=== PATIENT | male | born 1975 | race Two or more races ===

== ENCOUNTER 2023-07-14 14:27 | Emergency (ER) | payer OTHER, SELFPAY ==
--- NOTE | ~2023-07-14 | XR_ITS ---
XR chest 1V portable DATE: 07/14/2023 15:39 INDICATION: Shortness of breath. Chest on by wall spine. TECHNIQUE: Portable AP chest on 07/14/2023 at 1537 hours COMPARISON: None FINDINGS: Normal heart size. No hilar or mediastinal enlargement. No pulmonary infiltrate or consolid ation, pleural effusion or pulmonary vascular congestion or pneumothorax. Included skeletal structure s are unremarkable. IMPRESSION: Negative Reviewed, dictated and finalized at location B. IMPRESSION: Negative
[2023-07-14 14:39] VITALS: BP 116/79; PULSE 107; RESP 20; TEMP 36.3; O2SAT 94
--- NOTE | 2023-07-14 15:00 | ECG_ITS ---
Measurements Intervals [place] Rate: 92 P: 53 CA: 153 QRS: -20 QRSD: 110 T: 38 QT: 346 QTc: 429 Interpretive Statements SINUS RHYTHM NO PREVIOUS ECG AVAILABLE FOR COMPARISON Electronically Signed On 07-15-2023 12:10:37 CDT by Zainab France M.D.
[2023-07-14] MEDS: EPINEPHrine HCL INJ 1 MG/ML AMPUL 0.3 MG IM (15:12)
[2023-07-14] MEDS: methylPREDNISolone SOD SUCC 125 MG VIAL IV PUSH (15:12)
[2023-07-14] MEDS: diphenhydrAMINE HCl INJ 50 MG/ML VIAL IV PUSH (15:12)
[2023-07-14 15:20] VITALS: PULSE 90; RESP 18
[2023-07-14] MEDS: ALBUTEROL SULFATE NEB 2.5 MG/3 ML INH INHALATION (15:23)
[2023-07-14 15:28] VITALS: PULSE 92; RESP 18
--- NOTE | 2023-07-14 16:41 | ED.ALLEREA ---
HPI - Allergic Reaction General Chief complaint: Allergic Reaction Stated complaint: stung by wasp Time Seen by Provider: 07/14/23 14:52 Source: patient and RN notes reviewed Mode of arrival: ambulatory Limitations: no limitations History of Present Illness HPI narrative: This is a 48 year old male who presents for evaluation of allergic reaction. Patient states he was stung by multiple wasp prior to arrival. He denies hives, itching, tongue tingling and chest tightness. He reports history of allergic reaction with wasp sting in the past. His gave him 2 benadryl and steroid cream. Patient denies any medical problems or medications. Related Data Allergies Allergy/AdvReac Type Severity Reaction Status Date / Time No Known Allergies Allergy Unverified 02/18/18 17:26 Review of Systems Constitutional: Constitutional: Denies weakness Cardiovascular: Cardiovascular: Denies syncope, Denies rapid heart rate, Denies irregular heart rhythm, Denies leg edema and Denies dyspnea Respiratory: Respiratory: Reports chest congestion, Denies hemoptysis, Denies excessive phlegm production and Denies dyspnea Gastrointestinal: Gastrointestinal: Denies abdominal pain, Denies hematochezia, Denies diarrhea and Denies vomiting Genitourinary: Genitourinary: Denies hematuria, Denies dysuria, Denies penile discharge and Denies testicular pain Musculoskeletal: Musculoskeletal: Denies joint swelling, Denies loss of height and Denies muscle weakness Integumentary/Breasts: Skin/Breast: Reports pruritus and Reports rash Neurologic: Denies syncope, Denies focal weakness and Denies weakness PMFSH Past Medical History Medical History (Updated 07/15/23 @ 00:00 by Frnak Dasanya) Patient denies medical problems Surgical History Surgical History (Updated 07/14/23 @ 16:45 by Raquel Matta MD) No pertinent past surgical history Exam Const: General: no acute distress and alert Nutritional Appearance: well nourished Orientation/consciousness: patient oriented x3 HENMT: Head: normal to inspection Mouth: Yes Normal oral and palatal mucosa present, Yes lip normal and Yes moist mucous membranes Throat: posterior oropharynx normal and uvula midline Eyes: Conjunctivae: conjunctivae normal Pupils: Equal, round and reactive pupils present EOM: EOMs intact bilaterally Neck: Neck: normal visual inspection Chest: Chest palpation & inspection: normal inspection of the chest Resp: Effort & Inspection: normal respiratory effort Auscultation: wheezes expiratory wheezes Skin: Other: hives to arms, legs , trunk Neuro: General: patient oriented x3, moves all extremities and CN's II-XI intact bilaterally Extrem: General: normal to inspection Psych: Mental Status: mental status grossly normal Affect: normal affect Attitude: cooperative Course Reevaluation(s) Reevaluation #1: patient reports symptoms have resolved after benadryl 50 mg IV, solumedrol 125 mg IV, epi 0.3 mg IM, albuterol neb. I discussed we should watch for another hour for rebound symptoms. He is begging for discharge and states he leaves 2 minutes away. Date: 07/14/23 Time: 16:45 Vital Signs Vital signs: Vital Signs Temperature 97.3 F L 07/14/23 14:39 Pulse Rate 107 H 07/14/23 14:39 Respiratory Rate 20 07/14/23 14:39 Blood Pressure 116/79 07/14/23 14:39 Pulse Oximetry 94 07/14/23 14:39 Temperature 97.3 F L 07/14/23 14:39 Pulse Rate 80 07/14/23 17:10 Respiratory Rate 18 07/14/23 17:10 Blood Pressure 129/96 H 07/14/23 17:10 Pulse Oximetry 100 07/14/23 17:10 MDM - Allergic Reaction Differential Diagnosis Differential diagnosis: Likely anaphylaxis, allergic reaction, angioedema and urticaria Discharge Plan Discharge Clinical Impression: Allergic reaction Patient Disposition: Home, Self-Care Condition: Improved Instructions: Insect Bite or Sting (ED), Anaphylaxis (ED), General Allergic Reaction (ED) A
[2023-07-14 17:10] VITALS: BP 129/96; PULSE 80; RESP 18; O2SAT 100
== END 2023-07-14 17:11 | disposition home or self-care (01) ==
PROVIDERS: Emergency Provider General Practice; PCP Internal Medicine
DX: T78.40XA Allergy, unspecified, initial encounter (principal); X58.XXXA Exposure to other specified factors, initial encounter
CPT/HCPCS: 71045; 93005; 94640; 96372; 96374; 96375; 99284; J0171; J1200; J2930

== ENCOUNTER 2024-08-03 12:02 | Outpatient (CLI) | payer OTHER, SELFPAY ==
--- NOTE | ~2024-08-03 | XR_ITS ---
3 VIEWS LUMBAR SPINE Ordering provider: Ebony Jefferson, History: . NON TRAUMA LBP . Comparison: None. FINDINGS: VERTEBRAL BODIES: No visible fracture or subluxation. DISK SPACES: Normal. SOFT TISSUES: Normal. IMPRESSION: No acute osseous abnormality lumbar spine. Reviewed, dictated and finalized at location A.
== END 2024-08-03 12:03 | disposition home or self-care (01) ==
PROVIDERS: PCP Internal Medicine; Visit Provider Internal Medicine
DX: M54.16 Radiculopathy, lumbar region (principal)
CPT/HCPCS: 72110

== ENCOUNTER 2024-08-12 13:37 | Outpatient (CLI) | payer OTHER, SELFPAY | END 2024-08-12 13:38 | disposition home or self-care (01) | LOC: ANHAUDIO 13:40 | PROVIDERS: PCP Internal Medicine; Visit Provider Internal Medicine | DX: H90.3 Sensorineural hearing loss, bilateral (principal) | CPT/HCPCS: 92557; 92567 ==

== ENCOUNTER 2024-08-14 07:04 | Outpatient (CLI) | payer OTHER, SELFPAY ==
--- NOTE | ~2024-08-14 | CT_ITS ---
EXAMINATION: CT abdomen pelvis wo/w con DATE: 08/14/2024 07:45 INDICATION: Microscopic hematuria TECHNIQUE: Computed tomography (CT) of the abdomen and pelvis was performed without and subsequently with 100 CC Omnipaque 350 intravenous contrast material intravenous contrast. Automated exposure cont rol and iterative reconstruction technique were employed. Exam dose: 2077.39 mGy-cm total exam DLP. COMPARISON: None. FINDINGS: The lung bases are clear. Normal heart size. No pericardial or pleural effusion. Hepatic steatosis. No hepatic, splenic, pancreatic, adrenal or renal space occupying mass lesion is noted. No bile duct or pancreatic duct dilatation. No urinary tract tract calculus or hydroureteronephrosis . Normal appendix. No bowel obstruction or intraperitoneal free air. Normal caliber of the abdominal aorta. No intraperitoneal or retroperitoneal or pelvic mass lesion or adenopathy or ascites. Urinary bladder is relatively evacuated. The prostate gland is unremarkable. Included skeletal structures are unremarkable IMPRESSION: Hepatic steatosis Normal appendix No urinary tract mass lesion, calculus or hydroureteronephrosis is detected Reviewed, dictated and finalized at Location A. Reviewed, dictated and finalized at location A.
[2024-08-14 07:28] LABS: Estimated Glomerular Filt Rate 43
== END 2024-08-14 07:05 | disposition home or self-care (01) ==
PROVIDERS: PCP Internal Medicine; Visit Provider Internal Medicine
DX: R31.21 Asymptomatic microscopic hematuria (principal); K76.0 Fatty (change of) liver, not elsewhere classified
CPT/HCPCS: 74178; Q9967

== ENCOUNTER 2024-09-05 10:31 | Outpatient (CLI) | payer OTHER, SELFPAY ==
--- NOTE | ~2024-09-05 | MR_ITS ---
EXAMINATION: MR lumbar spine wo con DATE: 09/05/2024 11:11 INDICATION: Lumbar radiculopathy TECHNIQUE: Magnetic resonance imaging (MRI) of the lumbar spine was performed without intravenous con trast. Sequences included sagittal T2-weighted FSE, sagittal T2-weighted FS FSE, sagittal T1-weighted FSE, and axial T2-weighted FSE. COMPARISON: None FINDINGS: 3 mm retrolisthesis L5 on S1. Vertebral body heights are normal. Mild fibrovascular degenerative endp late changes along the anterior superior endplates of L2-L5 and at the posterior inferior endplate of L4. Marrow signal is otherwise normal. Mild disc desiccation and disc height loss with annular fissu res at both L4-L5 and L5-S1. The conus medullaris terminates at L1. There is normal signal in the cau thom spinal cord. Paravertebral soft tissues are unremarkable. The following disc levels are specifica lly discussed: T12-L1 through L3-L4: The disc does not extend beyond the endplate margin. There is mild bilateral fa cet joint osteoarthritis. There is no neural foraminal stenosis. There is no central canal stenosis. L4-L5: Disc is bulging. There is moderate bilateral facet joint osteoarthritis. There is mild to mode rate bilateral neural foraminal stenosis. There is mild central canal stenosis along with mild narrow ing of the left and right lateral recesses. L5-S1: Annular fissure and small central disc protrusion. There is moderate left and severe right fac et joint osteoarthritis. There is mild right and minimal left neural foraminal stenosis. There is no central canal stenosis. IMPRESSION: 1. Mild lower lumbar spondylosis. Reviewed, dictated and finalized at location A. EYOR ATTENDANT
== END 2024-09-05 10:32 | disposition home or self-care (01) ==
PROVIDERS: PCP Internal Medicine; Visit Provider Internal Medicine
DX: M43.06 Spondylolysis, lumbar region (principal)
CPT/HCPCS: 72148

== ENCOUNTER 2025-06-12 13:58 | Emergency (ER) | payer OTHER, SELFPAY ==
[2025-06-12] VITALS (23 sets, daily range): BP systolic 111–153; BP diastolic 80–115; PULSE 78–81; RESP 18–20; TEMP 36.4; O2SAT 94–100
--- NOTE | ~2025-06-12 | CT_ITS ---
EXAMINATION: CT abdomen pelvis wo con DATE: 06/12/2025 19:12 INDICATION: Inguinal hernia TECHNIQUE: Computed tomography (CT) of the abdomen and pelvis was performed without intravenous contrast. Automated exposure control and iterative reconstruction technique were employed. The dose-length product was 453.80 mGy-cm. COMPARISON: None FINDINGS: Lung bases are clear. Heart size is normal. No pericardial or pleural effusion. Liver, gallbladder, spleen, pancreas, bilateral adrenal glands and kidneys are normal. Normal appendix. No bowel obstruction. Bladder is normal. Small fat- containing right inguinal hernia. There is no left inguinal hernia. There is soft tissue edema in the suprapubic fat pad. There is a 4.5 x 4.0 x 1.8 cm high attenuation hematoma along the left side of the base of the penis suspicious for a hematoma and raising concern for penile fracture. No free intraperitoneal gas or fluid. No pathologically enlarged abdominal or pelvic lymphadenopathy. Mild degenerative skeletal changes in the lumbar spine and pelvis. IMPRESSION: 1. 4.5 x 4.0 x 1.8 cm low-attenuation likely hematoma along the left side of the base of the penis raising concern for penile fracture. No left-sided inguinal hernia. 2. Small fat-containing right inguinal hernia. Reviewed, dictated and finalized at location A. IMPRESSION: 1. 4.5 x 4.0 x 1.8 cm low-attenuation likely hematoma along the left side of th e base of the penis raising concern for penile fracture. No left-sided inguinal hernia. 2. Small fat-containing right inguinal hernia.
--- NOTE | ~2025-06-12 | US_ITS ---
EXAMINATION: US scrotum doppler DATE: 06/12/2025 18:04 INDICATION: Scrotal swelling TECHNIQUE: Testicular sonogram utilizing grayscale and Doppler COMPARISON: CT dated 08/14/2024 FINDINGS: The right testis measures 4.3 x 2.4 x 2.0 cm. The left testis measures 4.1 x 2.9 x 2.1 cm. Symmetric normal grayscale appearance to both testes. There is normal vascular flow to both testes. Bilateral 2-3 mm epididymal cysts. The bilateral epididymides are otherwise normal with normal vascular flow. There is no varicocele. Small bilateral hydroceles, left greater than right. There is a left inguinal hernia with peristalsing bowel extending caudally along the inguinal canal to the base of the scrotum near the level of the testis. This appears new since CT dated 08/14/2024. There is a small fat-containing right inguinal hernia which was present at the time of the prior CT. IMPRESSION: 1. At least moderate-sized left inguinal hernia containing peristalsing bowel which extends to the base of the scrotum which is new since 08/14/2024. 2. Chronic small fat-containing right inguinal hernia. 3. 2-3 mm bilateral epididymal cysts. Otherwise normal testes and epididymides. Reviewed, dictated and finalized at location A.
[2025-06-12 17:14] LABS: Hematocrit 48.7 % (42.0-52.0); Hemoglobin 16.2 g/dL (14.0-18.0); Immature Granulocyte Percent A 0.1 % (0-0.5); Lymphocytes Absolute Auto 2.27 K/mm3 (0.9-3.2); Mean Corpuscular HGB Conc 33.3 g/dl (32-36); Mean Corpuscular Hemoglobin 28.9 pg (26-34); Mean Corpuscular Volume 87.0 fl (80-100); Nucleated Red Blood Cells Absolute Auto 0.000 K/mm3 (0.0-0.012); Nucleated Red Blood Cells Perc 0.0 % (0.0-0.2); Platelet Count Result 226 k/mm3 (150-375); Red Blood Count 5.60 M/mm3 (4.6-6.20); White Blood Count 8.7 K/mm3 (4.5-10.0)
[2025-06-12 17:24] LABS: Alanine Aminotransferase 24 U/L (6-50); Albumin Level 4.6 g/dL (3.5-5.1); Alkaline Phosphatase 61 U/L (38-126); Anion Gap 7 mmol/L (4-12); Aspartate Amino Transferase 26 U/L (17-59); Bilirubin,Total 2.1 mg/dL (0.2-1.3); Blood Urea Nitrogen 17 mg/dL (9-20); Calcium 9.5 mg/dL (8.4-10.2); Carbon Dioxide 26 mmol/L (22-30); Chloride 104 mmol/L (98-107); Estimated Glomerular Filt Rate > 60; Glucose 95 mg/dL (65-110); Potassium 4.5 mmol/L (3.4-5.0); Sodium 137 mmol/L (137-145); Total Protein 8.0 g/dL (6.3-8.2)
[2025-06-12 17:26] LABS: INR 1.1; Prothrombin Time 13.9 Seconds (11.1-14.7)
[2025-06-12 17:27] LABS: Partial Thromboplastin Time 24.0 Seconds (22.3-36.8)
--- NOTE | 2025-06-12 20:04 | ED_ITS ---
HPI - General Adult General Chief complaint: Skin/Abscess/Foreign Body Stated complaint: bilat groin swelling Time Seen by Provider: 06/12/25 16:21 History of Present Illness HPI narrative: Patient is a 50-year-old male who presents ER with pain to his penis in left groin. Patient reports he is taking a nap yesterday when he developed some discomfort in warmth along the base of his penile shaft in the groin. He then developed some swelling in his scrotum. Today he developed obvious bruising along the penile shaft and in the suprapubic region as well as in the scrotum. He is having no dysuria or urinary retention or urinary frequency. He is passing gas and having bowel movements. He denies any direct trauma to his penis in left something occurred while he was napping. Denies forceful penetrative sex or manual stimulation. Related Data Allergies Allergy/AdvReac Type Severity Reaction Status Date / Time No Known Allergies Allergy Verified 06/12/25 14:33 Review of Systems 2 Review of Systems: All systems reviewed & are unremarkable except as noted in HPI and below Constitutional: Constitutional: Reports no additional constitutional complaints Cardiovascular: Cardiovascular: Reports no additional cardiovascular complaints Respiratory: Respiratory: Reports no additional respiratory complaints Gastrointestinal: Gastrointestinal: Reports no additional gastrointestinal complaints Genitourinary: Genitourinary: Reports no additional male genitourinary complaints [facility] Past Medical History Medical History (Updated 06/12/25 @ 20:40 by Earl Jimenez MD) Hypertension Surgical History Surgical History (Updated 07/14/23 @ 16:45 by Raquel Matta MD) No pertinent past surgical history Exam 2 Narrative: GENERAL: Well-appearing, well-nourished, and in no acute distress. HEAD: Normocephalic, atraumatic. ENT: Mucous membranes moist. CHEST: Clear to auscultation. No respiratory distress. HEART: Regular rate and rhythm. Normal peripheral pulses. ABDOMEN: Soft, nontender, nondistended. : Bruising to the suprapubic region bilaterally. There is ecchymoses the penile shaft but sparing the glans. There is firmness and tenderness at the base of the penis on left side. There is edema to the scrotum with dependent bruising. Testicles nontender. EXTREMITIES: Normal range of motion. No edema. SKIN: Warm, dry, no rash. NEURO: Alert and oriented x3. PSYCH: Normal mood and affect. Course Course Emergency Course: 2009: Ultrasound concerning for inguinal hernia however CT scan is more suspicious for hematoma at the base of the penis on left side. This may represent penile fracture. Will contact Urology. Patient informed results and concerns. 2037: Discussed with urology. Okay to go home. Ice for 15 minutes 3 times a day. Follow up in clinic on 06/14/2025. Will have him call 1st thing in the morning. No sexual intercourse in the interim. Patient verbalized understanding. Likely superficial vein injury. Dr. Perales also felt that should this be a penile fracture is likely very small as the corpus cavernosum appears intact. Vital Signs Vital signs: Vital Signs Temperature 97.5 F L 06/12/25 14:31 Pulse Rate 78 06/12/25 14:31 Respiratory Rate 20 06/12/25 14:31 Blood Pressure 118/82 06/12/25 14:31 Pulse Oximetry 100 06/12/25 14:31 Oxygen Delivery Room Air 06/12/25 14:31 Temperature 97.6 F 06/12/25 16:21 Pulse Rate 81 06/12/25 16:21 Respiratory Rate 18 06/12/25 16:21 Blood Pressure 153/115 H 06/12/25 18:32 Pulse Oximetry 96 06/12/25 20:00 Oxygen Delivery Room Air 06/12/25 14:31 Medical Decision Making Vital Signs Vital Signs: Vital Signs Temperature 97.5 F L 06/12/25 14:31 Pulse Rate 78 06/12/25 14:31 Respiratory Rate 20 06/12/25 14:31 Blood Pressure 118/82 06/12/25 14:31 Pulse Oximetry 100 06/12/25 14:31 Oxygen Delivery Room Air 06/12/25 14:31 Temperature 97.6 F 06/12/25 16:21 Pulse Rate 81 06/12/25 16:21 Respiratory Rate 18 06/12/25 16:21 Blood Pressure 153/115 H 06/12/25 18:32 Pulse Oximetry 96 06/12/25 20:00 Oxygen Delivery Room Air 06/12/25 14:31 Lab Data 06/12/25 17:08 06/12/25 17:08 Labs: Lab Results 06/12/25 Range/Units 17:08 WBC 8.7 (4.5-10.0) K/mm3 RBC 5.60 (4.6-6.20) M/mm3 Hgb 16.2 (14.0-18.0) g/dL Hct 48.7 (42.0-52.0) % MCV 87.0 (80-100) fl MCH 28.9 (26-34) pg MCHC 33.3 (32-36) g/dl RDW 12.4 (11.5-14.5) % Plt Count 226 (150-375) k/mm3 MPV 8.6 (7.4-10.4) fl Immature Gran % (Auto) 0.1 (0-0.5) % Neut % (Auto) 67.1 (45.5-73.1) % Lymph % (Auto) 26.1 (18.3-44.2) % [place] % (Auto) 6.0 (2.6-8.5) % Eos % (Auto) 0.5 (0-4.4) % Baso % (Auto) 0.2 (0.2-1.2) % Lymph # (Auto) 2.27 (0.9-3.2) K/mm3 [place] # (Auto) 0.5 (0.1-0.6) K/mm3 Eos # (Auto) 0.0 (0-0.3) K/mm3 Baso # (Auto) 0.0 (0.0-0.1) K/mm3 Abs Immat Gran (auto) 0.01 (0.00-0.031) K/mm3 Absolute Neuts (auto) 5.9 (1.3-6.7) K/mm3 Absolute Nucleated RBC 0.000 (0.0-0.012) K/mm3 Nucleated RBC % 0.0 (0.0-0.2) % PT 13.9 (11.1-14.7) Seconds INR 1.1 APTT 24.0 (22.3-36.8) Seconds Sodium 137 (137-145) mmol/L Potassium 4.5 (3.4-5.0) mmol/L Chloride 104 (98-107) mmol/L Carbon Dioxide 26 (22-30) mmol/L Anion Gap 7 (4-12) mmol/L BUN 17 (9-20) mg/dL Creatinine 1.06 (0.7-1.3) mg/dL Estim Creat Clear Calc Not Reportable Estimated GFR > 60 (59 - ) Glucose 95 (65-110) mg/dL Calcium 9.5 (8.4-10.2) mg/dL Total Bilirubin 2.1 H (0.2-1.3) mg/dL AST 26 (17-59) U/L ALT 24 (6-50) U/L Alkaline Phosphatase 61 (38-126) U/L Total Protein 8.0 (6.3-8.2) g/dL Albumin 4.6 (3.5-5.1) g/dL Imaging Data Radiologist's impression: ITS Impressions Scrotum Ultrasound 06/12/25 18:07 IMPRESSION: 1. At least moderate-sized left inguinal hernia containing peristalsing bowel which extends to the base of the scrotum which is new since 08/14/2024. 2. Chronic small fat-containing right inguinal hernia. 3. 2-3 mm bilateral epididymal cysts. Otherwise normal testes and epididymides. Discharge Plan Discharge Clinical Impression: Bruise of penis, Hematoma of penis Patient Disposition: Home Condition: Stable Instructions: Hematoma (ED) Additional Instructions: You have bruising of your penis and a small hematoma. It is still possible you could have a fractured penis though the fracture would likely be small. You need to follow-up with urology on June 14, 2025. Call the office that morning to schedule an appointment. You should ice the painful area for 15 minutes 3 times a day and avoid any heavy lifting or vigorous activity. Avoid any sexual activity as well. Patient Language: Kiswahili Prescriptions: No Action methylprednisolone [Medrol ([place])] 4 mg tablets,dose pack See Rx Instructions .ROUTE .COMPLEX Qty: 21 0RF Rx Instructions: orally per package directions famotidine [Pepcid] 20 mg tablet 20 mg PO BID Qty: 10 0RF epinephrine 0.3 mg/0.3 mL auto-injector 0.3 mg IM ONCE Qty: 2 0RF Rx Instructions: as a single dose; may repeat once Follow-up/Referrals: Sherman Perales MD [Physician, Urology] - 2 Days Li,MD Ebony [Primary Care Provider]
== END 2025-06-12 21:14 | disposition home or self-care (01) ==
PROVIDERS: Emergency Provider Emergency Medicine; PCP Internal Medicine
DX: S30.21XA Contusion of penis, initial encounter (principal); I10 Essential (primary) hypertension; K40.20 Bilateral inguinal hernia, without obstruction or gangrene, not specified as recurrent; N50.3 Cyst of epididymis; X58.XXXA Exposure to other specified factors, initial encounter
CPT/HCPCS: 36415; 74176; 76870; 80053; 85025; 85610; 85730; 93976; 99284